=== PATIENT | male | born 1965 ===

== ENCOUNTER 2017-12-22 18:53 | Emergency (ER) | payer OTHER ==
[~2017-12-22] VITALS: Ht 177.8 cm; Wt 90.3 kg
[~2017-12-22 18:53] MED LIST: KETO10TA2 PO; LOSARTAN POTASS50 MG
[2017-12-22] MEDS ORDERED: XANAX1 MG (19:07)
[2017-12-22] MEDS ORDERED: LEXAPRO5 MG (19:08)
== END 2017-12-22 20:30 | disposition home or self-care (01) ==
LOC: ER 18:53
DX: S01.112A Laceration without foreign body of left eyelid and periocular area, initial encounter (principal); W45.8XXA Other foreign body or object entering through skin, initial encounter; Y93.89 Activity, other specified; Y92.098 Other place in other non-institutional residence as the place of occurrence of the external cause; Y99.8 Other external cause status

== ENCOUNTER → 2018-01-02 | Emergency (ER) | payer OTHER ==
[~2018-01-02] VITALS: Ht 177.8 cm; Wt 86.2 kg
[~2018-01-02] MED LIST changes: +LEXAPRO5 MG; +XANAX1 MG
== END | disposition left against medical advice (07) ==
LOC: ER 08:29
DX: Z53.20 Procedure and treatment not carried out because of patient's decision for unspecified reasons (principal)